=== PATIENT | female | born 1985 | race Caucasian/White ===

== ENCOUNTER 2016-09-27 04:27 | Emergency (ER) | payer OTHER ==
[2016-09-27 04:32] VITALS: BP 112/64; PULSE 84; TEMP 98; BMI 30.2
[2016-09-27] MEDS ORDERED: FOLIC ACID INJECTION - 1 MG, THIAMINE HCL 100 MG, MULTIVIT INJECTION ADULT 10 ML in SOD... IVPB ONE (05:59)
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
[2016-09-27 07:12] LABS: ALBUMIN 3.7 g/dl (3.4-5.0); ALK PHOS 70 U/L (45-117); ANION GAP 10 (8-16); BILIRUBIN,TOTAL 0.2 mg/dL (0.2-1.0); CALCIUM 8.2 mg/dL (8.5-10.1); CO2 24 mmol/L (21-32); CREATININE 0.6 mg/dL (0.55-1.02); GLUCOSE,RANDOM 83 mg/dL (74-106); SGOT/AST 24 U/L (15-37); SGPT/ALT 40 U/L (12-78); TOT PROT 7.2 g/dl (6.4-8.2)
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
[2016-09-27 07:19] LABS: BASOPHIL 0.3 % (0-2.0); EOSINOPHIL 1.2 % (0-4.5); MCH 30.2 pg (25.7-33.7); MCHC 33.8 g/dl (32.0-36.0); MEAN CELL VOLUME 89.5 fl (80-96); MEAN PLT VOLUME 7.5 fl (7.5-11.1); NEUTROPHILS 71.2 % (42.8-82.8); PLATELET COUNT 239 K/MM3 (134-434); RDW 13.6 % (11.6-15.6); WHITE BLOOD COUNT 8.9 K/mm3 (4.0-10.0)
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
== END 2016-09-27 12:12 | disposition home or self-care (01) ==
LOC: JER 04:27
PROC: 3E033GC Introduction of Other Therapeutic Substance into Peripheral Vein, Percutaneous Approach (ICD-10-PCS; principal; 2016-09-27)
DX: F10.120 Alcohol abuse with intoxication, uncomplicated (principal); S00.83XA Contusion of other part of head, initial encounter; Y04.2XXA Assault by strike against or bumped into by another person, initial encounter; Y93.89 Activity, other specified; Y92.9 Unspecified place or not applicable
CPT/HCPCS: 36415; 70450-TC; 70486-TC; 80053; 80307; 84703; 85025; 99284-25

== ENCOUNTER 2018-10-08 23:35 | Emergency (ER) | payer OTHER ==
--- NOTE | 2018-10-08 23:59 | PDOC ---
History of Present Illness - General Stated Complaint: VAG BLEED 6 WEEKS Time Seen by Provider: 10/08/18 23:54 Past History - Past Medical History Allergies/Adverse Reactions: Allergies Allergy/AdvReac Type Severity Reaction Status Date / Time No Known Allergies Allergy Verified 09/27/16 04:32 Home Medications: Ambulatory Orders NK [No Known Home Medication] 09/27/16 - Suicide/Smoking/Psychosocial Hx Smoking History: Never smoked
[2018-10-09 00:01] VITALS: BP 111/55; PULSE 99; TEMP 98.6; BMI 29.7
--- NOTE | 2018-10-09 01:22 | PDOC ---
Documentation entered by Andrae Rudolph SCRIBE, acting as scribe for Tenzin Tucker MD. Tenzin Tucker MD: This documentation has been prepared by the Klaudia fallon Xhesika, SCRIBE, under my direction and personally reviewed by me in its entirety. I confirm that the documentation accurately reflects all work, treatment, procedures, and medical decision making performed by me. Attending Attestation - Resident Resident Name: August Palomares - ED Attending Attestation I have performed the following: I have examined & evaluated the patient, The case was reviewed & discussed with the resident, I agree w/resident's findings & plan, Exceptions are as noted - HPI HPI: 10/09/18 01:19 The patient is a 33 year old female, , currently 6 weeks ( confirmed by OB, never had US), with no significant PMH of who presents to the emergency department for vaginal spotting. Patient states she has been passing minimal clots. The patient denies chest pain, shortness of breath, headache and dizziness. Denies fever, chills, cough, nausea, vomiting, diarrhea and constipation. Denies dysuria, frequency, urgency and hematuria. Allergies: NKDA - Physicial Exam PE: 10/09/18 01:20 Vitals: Triage Vital signs reviewed General Appearance: no acute distress, well nourished well developed, Head: Atraumatic, normocephalic Neck: Supple;No Nuchal rigidity Chest Wall: Nontender Cardiac: Regular rate and rhythm, no murmurs, no rubs, no gallops, Lungs: Clear to auscultation bilateral, good air movement bilaterally, Abdomen: (+) mild lower abdominal discomfort. Soft, nondistended, normal bowel sounds Extremities: Full range of motion to all extremities, no cyanosis, clubbing, or edema Skin: Warm and dry, no rashes or lesions, no petechiae Psych: normal mood, normal affect - Medical Decision Making 10/09/18 01:50 33 years old proximally 6 weeks with lower abdominal discomfort vaginal bleeding does not have a confirmed IUP Patient sent to ultrasound to rule out ectopic labs UA type and screen ordered Dr. Wheat to follow-up results.
[2018-10-09 01:49] LABS: URINE APPEARANCE CLEAR; URINE BILIRUBIN NEGATIVE (NEGATIVE); URINE COLOR YELLOW; URINE GLUCOSE (UA) NEGATIVE (NEGATIVE); URINE KETONE NEGATIVE (NEGATIVE); URINE LEUK ESTERASE NEGATIVE (NEGATIVE); URINE NITRITE NEGATIVE (NEGATIVE); URINE PROTEIN NEGATIVE (NEGATIVE); URINE UROBILINOGEN 0.2 mg/dL (0.2-1.0)
--- NOTE | 2018-10-09 02:01 | PDOC ---
History of Present Illness - General Chief Complaint: Vaginal Bleeding Stated Complaint: VAG BLEED 6 WEEKS Time Seen by Provider: 10/08/18 23:54 History Source: Patient Exam Limitations: No Limitations - History of Present Illness Initial Comments: 10/09/18 01:00 Ally Hidalgo is a 33F @6 weeks presenting with vaginal bleeding. Reports 2 days of light spotting with slightly more today, small clot. Bleeding is only spotting when wiping, not significant enough to soak a pad. Saw OBGYN Wednesday after positive home test, dated at 6 weeks but has not yet had an US. Denies fever/chills, headache, chest pain, SOB, abd pain. No urinary sx, no constipation, no diarrhea, no nausea/vomiting. First time . No other significant obstetrical or gynecological history. No previous vaginal bleeding. No previous abdominal surgeries. Past History - Past Medical History Allergies/Adverse Reactions: Allergies Allergy/AdvReac Type Severity Reaction Status Date / Time No Known Allergies Allergy Verified 10/08/18 23:59 Home Medications: Ambulatory Orders NK [No Known Home Medication] 09/27/16 - Suicide/Smoking/Psychosocial Hx Smoking History: Never smoked Have you smoked in the past 12 months: No Information on smoking cessation initiated: No Hx Alcohol Use: No Drug/Substance Use Hx: No Review of Systems - Review of Systems Able to Perform ROS?: Yes Is the patient limited [place] proficient: No Constitutional: No: Chills, Fever, Weakness HEENTM: No: Blurred Vision, Nose Bleeding, Hearing Loss, Throat Pain Respiratory: No: Cough, Shortness of Breath, Wheezing Cardiac (ROS): No: Chest Pain, Edema, Lightheadedness, Palpitations ABD/GI: No: Constipated, Diarrhea, Nausea, Vomiting : No: Burning, Dysuria, Discharge, Frequency, Flank Pain, Hematuria Musculoskeletal: No: Back Pain, Joint Pain Integumentary: No: Symptoms Reported Neurological: No: Symptoms reported Endocrine: No: Symptoms Reported Hematologic/Lymphatic: No: Symptoms Reported All Other Systems: Reviewed and Negative *Physical Exam - Vital Signs Last Vital Signs Temp Pulse Resp BP Pulse Ox 98.6 F 99 H 20 111/55 L 100 10/08/18 23:42 10/08/18 23:42 10/08/18 23:42 10/08/18 23:42 10/08/18 23:42 - Physical Exam General Appearance: Yes: Nourished, Appropriately Dressed. No: Apparent Distress HEENT: positive: EOMI, Normal Voice, Symmetrical. negative: Scleral Icterus (R) , Scleral Icterus (L) Neck: positive: Trachea midline, Supple. negative: Tender, Lymphadenopathy (R) , Lymphadenopathy (L) Respiratory/Chest: positive: Lungs Clear, Normal Breath Sounds. negative: Chest Tender, Respiratory Distress Cardiovascular: positive: Regular Rhythm, Regular Rate. negative: Murmur Female Pelvic Exam: positive: normal external exam, cervical os closed, normal adnexa, normal size ovaries, CMT, discharge (yellow pus-like discharge with some serosang at the os). negative: lesions, Bartholin mass, Scalene Gland, vaginal bleeding Gastrointestinal/Abdominal: positive: Normal Bowel Sounds, Soft. negative: Tender, Organomegaly, Distended Musculoskeletal: positive: Normal Inspection. negative: CVA Tenderness Extremity: positive: Normal Capillary Refill, Normal Inspection, Normal Range of Motion, Other (ambulates without asssitance). negative: Tender Integumentary: positive: Normal Color, Dry, Warm Neurologic: positive: Fully Oriented, Alert, Normal Mood/Affect, Normal Response ED Treatment Course - LABORATORY CBC & Chemistry Diagram: 10/09/18 01:52 10/09/18 01:52 - RADIOLOGY Radiology Studies Ordered: Category Date Time Status TRANSVAGINAL US PREG [US] Stat Ultrasound 10/09/18 01:15 Ordered Medical Decision Making - Medical Decision Making 10/09/18 01:00 Ally Hidalgo is a 33F @6 weeks presenting with vaginal bleeding. Patient at 6 weeks confirmed by OBGYN but has not yet had US, but denies abd pain, fever, or any urinary sx. Will order TVUS with B-hcg quant, CMP, CBC to evaluate for IUP vs. ectopic. 10/09/18 03:00 Pelvic exam shows some cervical discharge with a closed os with some serosang discharge, no clots noted. CMT noted with discharge concerning for cervicitis, sent GC swabs for STI testing. WBC 11 consistent with this finding, but patient otherwise asymptomatic with no fever or abd pain. TVUS shows IUP at 6w6d. Beta at 6400. Plan for discharge home with strict f/u with Dr. Rojo or an ED in 2 days for repeat beta and TVUS. *DC/Admit/Observation/Transfer Diagnosis at time of Disposition: Threatened - Referrals Referrals: Ansley Rojo MD [Primary Care Provider] - - Patient Instructions Printed Discharge Instructions: DI for Threatened - Post Discharge Activity
[2018-10-09 02:07] LABS: BASO % 0.2 % (0-2.0); EOS % 4.3 % (0-4.5); HEMATOCRIT 38.4 % (32.4-45.2); HEMOGLOBIN 12.8 GM/dL (10.7-15.3); LYMPH % 23.2 % (8-40); MCH 30.2 pg (25.7-33.7); MCHC 33.4 g/dl (32.0-36.0); MEAN CELL VOLUME 90.3 fl (80-96); MEAN PLT VOLUME 7.5 fl (7.5-11.1); MONO % 9.8 % (3.8-10.2); NEUT % 62.5 % (42.8-82.8); PLATELET COUNT 268 K/MM3 (134-434); RBC 4.25 M/mm3 (3.60-5.2); RDW 13.1 % (11.6-15.6); WHITE BLOOD COUNT 11.3 K/mm3 (4.0-10.0)
[2018-10-09 02:37] LABS: ALBUMIN 3.7 g/dl (3.4-5.0); BILIRUBIN,TOTAL 0.2 mg/dL (0.2-1); BLOOD UREA NITROGEN 19.4 mg/dL (7-18); CALCIUM 8.7 mg/dL (8.5-10.1); CREATININE 0.6 mg/dL (0.55-1.3); POTASSIUM 4.3 mmol/L (3.5-5.1); TOT PROT 7.6 g/dl (6.4-8.2)
--- NOTE | 2018-10-09 02:46 | PDOC ---
*Physical Exam - Vital Signs Last Vital Signs Temp Pulse Resp BP Pulse Ox 98.6 F 99 H 20 111/55 L 100 10/08/18 23:42 10/08/18 23:42 10/08/18 23:42 10/08/18 23:42 10/08/18 23:42 ED Treatment Course - LABORATORY CBC & Chemistry Diagram: 10/09/18 01:52 10/09/18 01:52 - ADDITIONAL ORDERS Additional order review: Laboratory Results 10/09/18 10/09/18 01:52 01:36 Sodium 139 Potassium 4.3 Chloride 105 Carbon Dioxide 26 Anion Gap 8 BUN 19.4 H Creatinine 0.6 Est GFR (CKD-EPI)AfAm 139.78 Est GFR (CKD-EPI)NonAf 120.61 Random Glucose 86 Calcium 8.7 Total Bilirubin 0.2 AST 18 ALT 26 Alkaline Phosphatase 63 Total Protein 7.6 Albumin 3.7 Urine Color Yellow Urine Appearance Clear Urine pH 5.0 Ur Specific [place] 1.023 Urine Protein Negative Urine Glucose (UA) Negative Urine Ketones Negative Urine Blood Negative Urine Nitrite Negative Urine Bilirubin Negative Urine Urobilinogen 0.2 Ur Leukocyte Esterase Negative 10/09/18 01:52 RBC 4.25 MCV 90.3 MCHC 33.4 RDW 13.1 MPV 7.5 Neutrophils % 62.5 Lymphocytes % 23.2 Monocytes % 9.8 D Eosinophils % 4.3 D Basophils % 0.2 Medical Decision Making - Medical Decision Making 10/09/18 02:46 Patient Name: JESUS GARCIA THIS IS A PRELIMINARY REPORT FROM [facility] DATE OF SERVICE: 2018-10-09 01:21:20 IMAGES: 41 EXAM: TRANSVAGINAL US PREG and pelvic duplex HISTORY: Vaginal bleeding. Rule out ectopic COMPARISON: None. FINDINGS: Ultrasound : Uterus is anteverted and measures 7.1centimeters in length. There is a single live IUP with estimated gestational age of 6weeks and 6days. There is a normal heart rate of 156beats per minute. There is no subchorionic bleed. The right ovary measures 2.8centimeters in length and contains a tiny cyst, likely a corpus luteum. The left ovary measures 2.1centimeters in length and appears normal. There is no significant free fluid. IMPRESSION: Live IUP, estimated age 6 weeks 6 days, without definite abnormalities. Rh pending. Pt with threatened 10/09/18 05:25 Blood type Opositive; c in the 6000s *DC/Admit/Observation/Transfer Diagnosis at time of Disposition: Threatened - Discharge Dispostion Disposition: HOME Condition at time of disposition: Stable Decision to Admit order: No - Referrals Referrals: Ansley Rojo MD [Primary Care Provider] - - Patient Instructions Printed Discharge Instructions: DI for Threatened - Post Discharge Activity
== END 2018-10-09 03:06 | disposition home or self-care (01) ==
LOC: JER 23:35
DX: O20.0 Threatened abortion (principal); Z3A.01 Less than 8 weeks gestation of pregnancy
CPT/HCPCS: 36415; 76817-TC; 80053; 81003; 84702; 85025; 86850; 86900; 86901; 87086; 87491; 87591; 99283-25